=== PATIENT | male | born 1995 | race Asian ===

== ENCOUNTER 2021-10-18 00:36 | Emergency (ER) | payer OTHER ==
[~2021-10-18] VITALS: Ht 160 cm; Wt 70.5 kg
[2021-10-18 00:53] LABS: BASO # 0.1 K/mm3 (0.0-0.2); BASO % 0.6 % (0.0-2.0); EOS # 0.2 K/mm3 (0.0-0.7); EOS % 2.6 % (0.0-4.0); GRAN # 3.2 K/mm3 (1.4-6.5); GRAN % 40.8 % (42.2-75.2); HEMATOCRIT 44.2 % (42.0-52.0); HEMOGLOBIN 14.2 g/dl (13.5-18.0); LYMPH # 3.5 K/mm3 (1.2-3.4); LYMPH % 45.5 % (20.0-51.0); MEAN CELL VOLUME 90 fl (80.0-100.0); MEAN CORPUSCULAR HEMOGLOBIN 29 pg (27-31); MEAN CORPUSCULAR HGB CONC 32 g/dl (33.0-37.0); MEAN PLATELET VOLUME 9.2 fl (7.4-10.4); MONO # 0.8 K/mm3 (0.1-0.6); MONO % 9.7 % (1.7-9.3); PLATELET COUNT 238 K/mm3 (130-400); RED BLOOD COUNT 4.89 M/mm3 (4.20-5.60); REDCELL DISTRIBUTION WIDTH-CV 12.6 % (11.5-14.5)
[2021-10-18 01:07] VITALS: TEMP 97.5
[2021-10-18 01:08] LABS: ALBUMIN 4.3 gm/dL (3.5-5.0); BILIRUBIN,TOTAL 0.5 mg/dL (0.2-1.2); CALCIUM 8.9 mg/dL (8.4-10.2); CREATININE, serum 1.13 mg/dL (0.72-1.25); TOTAL PROTEIN 8.2 gm/dL (6.2-8.1)
[2021-10-18 01:10] LABS: POTASSIUM 2.9 mmol/L (3.5-4.5)
[2021-10-18 03:40] VITALS: BP 113/70; PULSE 74
== END 2021-10-18 03:38 | disposition home or self-care (01) ==
LOC: COL.ER 00:36
PROVIDERS: Personal Emergency Response Attendant
DX: S09.90XA Unspecified injury of head, initial encounter (principal); F10.129 Alcohol abuse with intoxication, unspecified; Y90.8 Blood alcohol level of 240 mg/100 ml or more; W01.198A Fall on same level from slipping, tripping and stumbling with subsequent striking against other object, initial encounter
CPT/HCPCS: J2405